=== PATIENT | female | born 1990 | race Caucasian/White ===

== ENCOUNTER 2018-05-05 20:17 | Observation (INO) ==
[2018-05-05] MEDS ORDERED: Aluminum/Magnesium/Simethacone Susp 30 ML UDC PO ONE (20:32)
[2018-05-05] MEDS ORDERED: Famotidine PF Inj 20 MG/2 ML Vial IV.PUSH ONE (20:32)
[2018-05-05] MEDS ORDERED: Sod Chloride 0.9% Inj 1,000 ML IV.SIG ONE (20:32)
--- NOTE | 2018-05-05 20:36 | ED ---
HPI General Chief Complaint: Abdominal Pain Stated Complaint: Vomiting/Diarrhea/Abd Pain x1Day Time Seen by Provider: 05/05/18 20:27 Source: patient Mode of arrival: ambulatory Limitations: no limitations History of Present Illness HPI narrative: Patient is a 28-year-old female who presents the emergency room with complaints of nausea and vomiting and diarrhea. Patient reports that around 2 PM this afternoon, she has had episodes of nausea and vomiting. Patient reports that she has not been able to keep anything her stomach due to this nausea and vomiting. Patient reports that her symptoms have progressed, now she is having diarrhea. Patient does think that her symptoms could be due to food poisoning as she did have [employer] last night. Reports that her as well as her child's ate similar foods and they were okay. Patient reports that she does have history of cholecystectomy in the past -denies any alcohol abuse. Reports that she does have pain in the epigastrium, she was concerned for possible gastric ulcer. Patient with no fever or chills, no other complaints at this time. MD complaint: Reports abdominal pain Onset (ago): hour(s) Pain Consistency: constant Location: Reports epigastric Severity: moderate Severity scale (1-10): 4 Migration to: Reports no migration Relieving factors: nothing Exacerbating factors: nothing Related Data Home Medications Medication Instructions Recorded Confirmed No Known Home Medications 05/05/18 05/05/18 Allergies Allergy/AdvReac Type Severity Reaction Status Date / Time No Known Allergies Allergy Verified 05/05/18 20:19 Review of Systems ROS: all other systems reviewed are negative PMFSH History History Provided By: Patient Medical History Medical History No active medical problems (Acute) Surgical History Surgical History Hx of cholecystectomy (Acute) Social History Social History Substance History: No History of Abuse Second Hand Smoke Exposure: No Smoking Status: Never smoker How Often Do You Have a Drink Containing Alcohol: Monthly or less [facility] within the Last 8 Weeks: No Recent Out of Country Travel within the Last 8 Weeks: No Exam Narrative Exam Narrative: GENERAL: NAD SKIN: Focused skin assessment warm/dry. HEAD: Atraumatic. Normocephalic. EYES: Pupils equal and round. No scleral icterus. No injection or drainage. ENT: No nasal bleeding or discharge. Mucous membranes pink and moist. NECK: Trachea midline. No JVD. CARDIOVASCULAR: Regular rate and rhythm. No murmur appreciated. RESPIRATORY: No accessory muscle use. Clear to auscultation. Breath sounds equal bilaterally. GASTROINTESTINAL: Abdomen soft, tenderness to epigastrium, nondistended. Hepatic and splenic margins not palpable. MUSCULOSKELETAL: No obvious deformities. No clubbing. No cyanosis. No edema. NEUROLOGICAL: Awake and alert. No obvious cranial nerve deficits. Motor grossly within normal limits. Normal speech. PSYCHIATRIC: Appropriate mood and affect; insight and judgment normal. Course Reevaluation(s) Reevaluation #1: Patient was reevaluated, patient reports continued nausea and vomiting with upper abdominal pain. I did order another dose of Zofran for patient, will also add morphine to help with the pain control. Time: 22:01 Initial Documented Vital Signs Temperature 97.5 F L 05/05/18 20:19 Pulse Rate 66 05/05/18 20:19 Respiratory Rate 18 05/05/18 20:19 Blood Pressure 136/70 05/05/18 20:19 Pulse Oximetry 100 05/05/18 20:19 Last Documented Vital Signs Temperature 97.5 F L 05/05/18 20:19 Pulse Rate 62 05/05/18 22:55 Respiratory Rate 18 05/05/18 22:55 Blood Pressure 128/88 05/05/18 22:55 Pulse Oximetry 99 05/05/18 22:55 Medical Decision Making MDM Narrative Medical decision making narrative: During the course of the patients emergency department visit, the patients history, examination, and differential diagnosis were reviewed with the patient. The patient was placed on a traffic monitor specialist with oximetry and frequent blood pressure monitoring. The patient had an IV access obtained and blood work sent for analysis. The patient was initially provided GI cocktail, IV fluids, IV Zofran The patients laboratory studies were reviewed and remarkable for wbc 21, hgb 14.4, hct 44.5, platelet 245 Sodium 137, potassium 3.8, BUN 15, creatinine 0.70, glucose 114 Radiology studies were reviewed and remarkable for CT of the abdomen and pelvis shows a fluid-filled distended appendix with at least one appendicolith. There is some surrounding inflammation suspicious for appendicitis. I did review all labs and all studies with patient in detail. Patient is still not feeling well and still feels sick. Patient with most likely acute appendicitis. Call made to Dr. Ruiz to review case, request transfer to [facility] as he is on-call tomorrow at [facility] for trauma. Plan for OR tomorrow for appendectomy. He accepts patient to his service. Medical Screen Exam Complete: Yes Emergency Medical Condition: Yes Differential Diagnosis Differential Diagnosis: Gastritis, gastroenteritis, pancreatitis, gastric ulcer , duodenal ulcer Lab Data Lab results reviewed: Yes I reviewed the patient's lab results. Result diagrams: 05/05/18 21:30 05/05/18 21:30 POC Results POC Urine Results Negative Lab Results 05/05/18 05/05/18 05/05/18 Range/Units 21:30 21:30 22:55 CBC w Diff Auto diff final WBC 21.0 H (4.0-11.0) th/mm3 RBC 4.97 (4.00-5.30) mil/mm3 Hgb 14.4 (11.6-15.3) gm/dL Hct 44.5 (35.0-46.0) % MCV 89.6 (80.0-100.0) fL MCH 29.1 (27.0-34.0) pg MCHC 32.5 (32.0-36.0) % RDW 12.3 (11.6-17.2) % Plt Count 245 (150-450) th/mm3 MPV 9.4 (7.0-11.0) fL Neut % (Auto) 90.3 H (16.0-70.0) % Lymph % (Auto) 4.0 L (9.0-44.0) % Tompkins % (Auto) 5.2 (0.0-8.0) % Eos % (Auto) 0.1 (0.0-4.0) % Baso % (Auto) 0.4 (0.0-2.0) % Neut # (Auto) 19.0 H (1.8-7.7) th/mm3 Lymph # (Auto) 0.8 L (1.0-4.8) th/mm3 Tompkins # (Auto) 1.1 H (0.0-0.9) th/mm3 Eos # (Auto) 0.0 (0.0-0.4) th/mm3 Baso # (Auto) 0.1 (0.0-0.2) th/mm3 WBC Differential . Differential Comment . Sodium 137 (136-145) meq/L Potassium 3.8 (3.5-5.1) meq/L Chloride 104 (98-107) meq/L Carbon Dioxide 23.6 (21.0-32.0) meq/L Anion Gap 9 (5-15) meq/L BUN 15 (7-18) mg/dL Creatinine 0.70 (0.50-1.00) mg/dL Estimated GFR Greater than 89 (>89) mL/min Random Glucose 114 H (74-106) mg/dL Calcium 8.8 (8.5-10.1) mg/dL Magnesium 2.1 (1.5-2.5) mg/dL Total Bilirubin 0.9 (0.2-1.0) mg/dL AST 26 (15-37) U/L ALT 40 (10-53) U/L Alkaline Phosphatase 60 (45-117) U/L Total Protein 8.0 (6.4-8.2) g/dL Albumin 4.3 (3.4-5.0) g/dL Lipase 105 (73-393) U/L Urine Color Yellow (Yellw/Straw) Urine Clarity Slightly cloudy (Clear) Urine pH 6.0 (5.0-8.5) Ur Specific [place] Greater/equal 1.030 (1.002-1.035) Urine Protein Trace (Neg-Trace) mg/dL Urine Glucose (UA) Negative (Negative) mg/dL Urine Ketones 40 H (Negative) mg/dL Urine Occult Blood Negative (Negative) Urine Nitrate Negative (Negative) Urine Bilirubin Negative (Negative) Urine Urobilinogen 0.2 (Less than 2) mg/dL Ur Leukocyte Esterase Negative (Negative) Urine RBC 0-3 (0-3) /hpf Urine WBC 6-8 H (0-5) /hpf Ur Squamous Epith Cells 6-10 H (0-5) /hpf Urine Mucus Moderate H (Occasional) /lpf Micro UA Comment Culture not ind Ur Microscopic Review Microscopic reviewed Urine Culture Comments Culture not ind Imaging Data Attestation: I personally reviewed and interpreted this imaging study as follows : Radiologist's impression: Abdomen/Pelvis CT 05/05/18 22:00 CONCLUSION: 1. Fluid-filled distended appendix with at least one appendicolith. Some surrounding inflammation suspicious for appendicitis Discharge Plan Discharge Disposition Patient Disposition: ED Admit(ED Internal Use Only) Discharge Condition Condition: Fair Discharge Order Discharge Orders: ED Use Only Admit Order (Routine); Ordered 05/05/18 Ordered By: Raina Cerda Discharge Details Diagnosis: Acute appendicitis Physicians Team ED Provider: Raina Cerda Primary Care Provider: Primary Care Latishai,No Attending Provider: Julieta Wolf Status ED Status: Admitted Observation Patient
[2018-05-05 21:44] LABS: Baso # (Auto) 0.1 th/mm3 (0.0-0.2); Baso % (Auto) 0.4 % (0.0-2.0); Eos % (Auto) 0.1 % (0.0-4.0); Hematocrit 44.5 % (35.0-46.0); Hemoglobin 14.4 gm/dL (11.6-15.3); Lymph # (Auto) 0.8 th/mm3 (1.0-4.8); Mean Corpuscular HGB Conc 32.5 % (32.0-36.0); Mean Corpuscular Hemoglobin 29.1 pg (27.0-34.0); Mean Corpuscular Volume 89.6 fL (80.0-100.0); Mean Platelet Volume 9.4 fL (7.0-11.0); Mono # (Auto) 1.1 th/mm3 (0.0-0.9); Mono % (Auto) 5.2 % (0.0-8.0); Neut % (Auto) 90.3 % (16.0-70.0); Platelet Count 245 th/mm3 (150-450); Red Blood Count 4.97 mil/mm3 (4.00-5.30); Red Cell Distribution Width 12.3 % (11.6-17.2)
[2018-05-05 21:50] LABS: Chloride 104 meq/L (98-107); Potassium 3.8 meq/L (3.5-5.1); Sodium 137 meq/L (136-145)
[2018-05-05 21:54] LABS: Albumin 4.3 g/dL (3.4-5.0); Anion Gap 9 meq/L (5-15); Calcium 8.8 mg/dL (8.5-10.1); Carbon Dioxide 23.6 meq/L (21.0-32.0); Glucose,Random 114 mg/dL (74-106); Lipase 105 U/L (73-393); Magnesium 2.1 mg/dL (1.5-2.5)
[2018-05-05 21:55] LABS: Blood Urea Nitrogen 15 mg/dL (7-18)
[2018-05-05 21:57] LABS: Alanine Aminotransferase 40 U/L (10-53); Aspartate Aminotransferase 26 U/L (15-37); Glomerular Filtration Rate Greater Than 89 mL/min (>89)
[2018-05-05 22:00] LABS: Alkaline Phosphatase 60 U/L (45-117)
[2018-05-05] MEDS ORDERED: Morphine Inj 4 MG/ML Vial IV.PUSH ONE ×2 (22:00→23:38)
[2018-05-05 23:10] LABS: Bilirubin,Urine Negative (Negative); Clarity,Urine Slightly Cloudy (Clear); Color,Urine Yellow (Yellw/Straw); Glucose,Urine (UA) Negative (Negative); Leukocyte Esterase,Urine Negative (Negative); Nitrite,Urine Negative (Negative); Specific Gravity,Urine Greater/Equal 1.030 (1.002-1.035); Urobilinogen,Urine 0.2 mg/dL (Less than 2)
[2018-05-05 23:17] LABS: Mucus,Urine Moderate /lpf (Occasional); RBC,Urine 0-3 /hpf (0-3)
--- NOTE | 2018-05-05 23:28 | CT ---
EXAM DATE: 05/05/2018 11:21 PM EST AGE/SEX: 28 years / Female INDICATIONS: Nausea, vomiting, abdominal pain for last 24 hours. CLINICAL DATA: This is the patient's initial encounter. Patient reports that signs and symptoms have been present for 1 day and indicates a pain score of 7/10. MEDICAL/SURGICAL HISTORY: . Cholecystectomy. RADIATION DOSE: 7.88 CTDI (mGy) COMPARISON: No prior exams available for comparison. TECHNIQUE: Multiple contiguous axial images were obtained through the abdomen. Images were obtained using multiple row detector helical technique. Using automated exposure control and adjustment of the mA and/or kV according to patient size, radiation dose was kept as low as reasonably achievable to o btain optimal diagnostic quality images. DICOM format image data is available electronically for rev iew and comparison. FINDINGS: Lower Lungs: The visualized lower lungs are clear. Liver: The liver has a homogeneous density without space-occupying lesion. There is no dilation of th e biliary tree. Cholecystectomy clips Spleen: Homogeneous density without enlargement. Pancreas: Unremarkable without mass or calcification. Kidneys: Normal in size and shape. No evidence of mass or hydronephrosis. Adrenal Glands: Unremarkable. Aorta: The aorta and proximal iliac vessels are grossly unremarkable without aneurysmal dilation. Bowel/Mesentery: The bowel loops are grossly unremarkable. The cecum and sigmoid colon have a normal configuration. The appendix is identified and is abnormal. It is thickened and fluid-filled with one area of Increased density at its base consistent with an appendicolith. There is some low-grade infl ammation anterior to the appendix confirming appendicitis Abdominal Wall: Intact. Retroperitoneum: No evidence of adenopathy in the retrocrural, para-aortic, or deep pelvic regions. Bladder: Contours are smooth. Reproductive Organs: No abnormal masses or calcifications seen. Multiple cysts bilaterally Inguinal: The inguinal region is unremarkable without evidence of adenopathy. Bony Structures: Unremarkable. CONCLUSION: 1. Fluid-filled distended appendix with at least one appendicolith. Some surrounding inflammation arellano spicious for appendicitis Electronically signed by: Tristen Gabriel MD Board Certified Radiologist 05/05/2018 11:27 PM EST
[2018-05-05] MEDS ORDERED: Piperacil/Tazo 3.375 GM Premix 3.375 GM/50 ML PIGGYBACK IV.SIG ONE (23:34)
[2018-05-06] MEDS: Morphine Inj 4 MG/ML Vial IV.PUSH PRN ×2 (04:05→08:27)
[2018-05-06] MEDS ORDERED: Bupivacaine/Epinephrine Inj 0.25% 50 ML Vial ONE (10:24)
[2018-05-06] MEDS ORDERED: Post-op Orders (for Pharmacy) OTHER ONE (10:41)
[2018-05-06] MEDS ORDERED: Bisacodyl 10 MG Supp RECTAL PRN (10:41)
[2018-05-06] MEDS ORDERED: Morphine Sulfate Inj 8 MG/ML Vial IV.PUSH PRN (10:41)
[2018-05-06] MEDS ORDERED: Promethazine 25 MG Supp RECTAL PRN (10:41)
--- NOTE | 2018-05-06 10:44 | P.OP ---
- Preoperative Diagnosis (1) Acute appendicitis - Postoperative Diagnosis (1) Acute appendicitis Procedure: lap appy Anesthesia: GETA Surgeon: Gilberto Cota MD Pathology: other (appendix) Operation and Findings: inflamed appendix
[2018-05-06] MEDS: Piperacil/Tazo 3.375 GM Premix 3.375 GM/50 ML PIGGYBACK IV.SIG SCH ×2 (11:10→18:05)
[2018-05-06] MEDS ORDERED: Morphine Inj 4 MG/ML Vial IV.PUSH PRN (11:45)
[2018-05-06] MEDS ORDERED: *Meperidine Inj 25 MG/ML Vial PERIprocedural Use ONLY ONE (11:46)
[2018-05-06] MEDS ORDERED: fentaNYL Citrate Inj 100 MCG/2 ML Ampul ONE (11:47)
[2018-05-06] MEDS: Sod Chloride 0.9% Inj 1,000 ML IV.CONT SCH ×2 (12:00→23:20)
[2018-05-06] MEDS: Ketorolac Inj 30 MG/ML (IVP) Vial IV.PUSH PRN (13:06)
--- NOTE | 2018-05-06 13:59 | MH ---
cc: Gilberto Cota MD DATE OF ADMISSION: 05/05/2018 CHIEF COMPLAINT: Acute appendicitis, right lower quadrant abdominal pain. HISTORY OF PRESENT ILLNESS: The patient is a 28-year-old female who presents to the emergency department with acute onset of generalized abdominal pain. It started at around 2 p.m. The pain continued to get worse and was pretty severe. She states the pain was mid abdomen and slowly localized to the right lower quadrant. She has never had pain quite severe like this before. She denies any NSAID use. She states the pain was a 9/10, currently it is a 6/10, better with some pain medication; however, still significant. She had associated nausea, vomiting and some diarrhea as well. She came to the emergency department for further evaluation including CT scan showing acute appendicitis and WBC of 21,000. PAST MEDICAL HISTORY: The patient has no past medical history. PAST SURGICAL HISTORY: Laparoscopic cholecystectomy. SOCIAL HISTORY: Denies smoking, ETOH. Occasional ETOH. Denies IVDA. MEDICATIONS: See electronic medical record. FAMILY HISTORY: Diabetes and hypertension. REVIEW OF SYSTEMS: GENERAL: Denies eye pain, ear pain. NECK: Denies swelling or pain. LUNGS: Denies cough, wheeze, palpitations or chest pain. ABDOMEN: Complains of nausea, vomiting, diarrhea, abdominal pain. GENITOURINARY: Denies dysuria or hematuria. Denies polyuria, polydipsia. INTEGUMENT: Denies any masses or lesions. NEUROLOGIC: Denied any numbness or tingling. PSYCHIATRIC: Denies any change in mood or sensorium. PHYSICAL EXAMINATION: GENERAL: The patient in no acute distress. VITAL SIGNS: Temperature 97.5, pulse 66, respirations 18, blood pressure 136/70, saturation 100%. HEENT: Pupils equal, round, reactive. NECK: Supple. Trachea midline. LUNGS: Clear to auscultation, bilateral expansion. HEART: S2, S1, regular. ABDOMEN: Soft. Positive tenderness to palpation in right lower quadrant. Minimal rebound. EXTREMITIES: Warm and well perfused. NEUROLOGIC: GCS of 15. Motor 5/5 in all extremities. INTEGUMENT: No obvious masses or lesions. LABORATORY AND DIAGNOSTIC DATA: WBC 21, hemoglobin 14.4, hematocrit 44.5, platelets 245. Sodium 137, potassium 3.8, chloride 104, BUN 15, creatinine 0.7, glucose 114, AST 26, ALT 40, lipase 105. CT reviewed by myself showing an enlarged thickened appendix, appendicolith, acute appendicitis. ASSESSMENT: The patient is a 28-year-old female who presents with acute onset abdominal pain consistent with appendicitis. PLAN: After a full workup, patient was found to have the above-named issues. At this point, the patient has acute appendicitis. We will take the patient emergently to operating room for laparoscopic appendectomy. Discussed with the patient in detail possible drain and possible open. We will continue n.p.o., IV fluids, IV antibiotics, pain control. MD TRAVIS Cedeno/hamzah , 12:54 PM , 01:01 PM
--- NOTE | 2018-05-06 14:53 | MP ---
cc: Gilberto Cota MD DATE OF OPERATION: 05/06/2018 PREOPERATIVE DIAGNOSIS: Acute appendicitis. POSTOPERATIVE DIAGNOSIS: Acute appendicitis. PROCEDURE PERFORMED: Laparoscopic appendectomy. SURGEON: Gilberto Cota MD VACUUM DRIER TENDER: Sada ANESTHESIA: GETA. ESTIMATED BLOOD LOSS: 5 mL. DRAINS: None. COMPLICATIONS: None. WOUND CLASSIFICATION: Contaminated. SPECIMENS: Appendix. FINDINGS: Acute inflamed, indurated appendix with fibrinopurulent drainage. No evidence of perforation. INDICATIONS FOR PROCEDURE: This is a 28-year-old female who presents with acute onset of abdominal pain. CT findings with acute appendicitis. Therefore, decision for laparoscopic appendectomy. DETAILS OF PROCEDURE: A brief timeout was done, stating correct patient, procedure, and surgical site. We were all in agreement with this. Attention first directed to the umbilicus where a previous umbilical incision was noted. Incision made with 11 blade after injection of local anesthetic. The Optiview 5 mm Visiport was done to enter the abdomen safely. Abdomen insufflated to 15 mm pneumoperitoneum. On cursory inspection, no evidence of injury. Two other ports were placed, including a 12 mm left lower quadrant and a 5 mm suprapubic port. The patient was placed in Trendelenburg and airplaned to the left. The right lower quadrant was examined and identified. The appendix was noted to be somewhat significant in size with induration and infection. Fibropurulent material noted on the surface of the appendix. No evidence of gross perforation. Electrocautery was used with narrowing at the mesoappendix. A 35 RUBEN stapler was used to transect the base of the appendix. The mesoappendix was transected with a RUBEN 35 stapler as well. Hemostasis was obtained with electric Bovie cautery. The appendix was placed in appendiceal laparoscopic bag and removed from the abdomen. Pneumoperitoneum was removed. The ports were removed. The left lower quadrant 12 mm port was closed with 0 Vicryl to the fascia and 4-0 Monocryl used at all port sites. Local anesthetic was injected and Steri-Strips placed and sterile dressings. The patient tolerated the procedure. There were intraoperative complications. All lap and instrument counts were correct at the end of the procedure. The patient was extubated and taken stable to the PACU. MD Shiv Cedeno , 11:44 AM , 11:51 AM
[2018-05-06] MEDS: Senna/Docusate Sodium 8.6/50 MG Tablet PO SCH ×2 (19:44→23:20)
[2018-05-07] MEDS: Sod Chloride 0.9% Inj 1,000 ML IV.CONT SCH ×2 (00:12→11:21)
[2018-05-07] MEDS: Piperacil/Tazo 3.375 GM Premix 3.375 GM/50 ML PIGGYBACK IV.SIG SCH ×2 (04:34→11:22)
--- NOTE | 2018-05-07 06:03 | P.PNGS ---
Subjective Patient reports: no new complaints, feels better Physical Exam Vital signs: Vital Signs 05/06/18 07:12 05/06/18 08:00 05/06/18 08:40 Temperature 98.6 F 97.8 F Pulse Rate 96 H 65 90 Respiratory Rate 30 H 16 22 Blood Pressure 115/82 131/62 116/75 Pulse Oximetry 100 99 100 05/06/18 11:42 05/06/18 11:45 05/06/18 12:00 Temperature 99 F Pulse Rate 113 H 110 H 97 H Respiratory Rate 15 15 13 Blood Pressure 109/59 L 110/64 102/54 L Pulse Oximetry 100 100 100 05/06/18 12:15 05/06/18 13:45 05/06/18 14:39 Temperature 98.6 F 98.0 F 98.0 F Pulse Rate 98 H 103 H 86 Respiratory Rate 13 18 17 Blood Pressure 98/54 L 96/55 L 101/55 L Pulse Oximetry 100 97 99 05/06/18 20:00 05/06/18 22:00 05/06/18 23:19 Temperature 98.5 F Pulse Rate 68 Respiratory Rate 16 20 Blood Pressure 95/60 L 98/62 L Pulse Oximetry 96 05/06/18 23:33 05/07/18 04:08 Temperature 98.5 F 97.5 F L Pulse Rate 62 70 Respiratory Rate 16 16 Blood Pressure 94/54 L 96/57 L Pulse Oximetry 100 99 Intake & Output 05/06/18 05/06/18 05/07/18 06:59 18:59 06:59 Intake Total 1050 / 1050 1100 / 1100 50 / 50 Output Total 205 / 205 Balance 1050 / 1050 895 / 895 50 / 50 Weight 58.8 kg Intake: IV 1050 / 1050 100 / 100 50 / 50 Zosyn 3.375 GM Premix 3.375 gm 50 / 50 100 / 100 50 / 50 In 50 ml @ 100 mls/hr IV.SIG Q8H RHODA Rx#:[id number] NS Inj 1,000 ML @ Wide Open IV. 1000 / 1000 SIG BOLUS ONE Rx#:[id number] Oral 0 / 0 Anesthesia Amount 1000 / 1000 Output: Urine 200 / 200 Estimated Blood Loss 5 / 5 Other: # Voids 1 Date of Last Bowel Movement 05/05/18 # Bowel Movements 0 Weight On Admission 59.5 kg - Routine Abdominal Exam Present: soft (incisional tenderness) Results - Labs 05/05/18 21:30 05/05/18 21:30 - Imaging Imaging: ITS Impressions Abdomen/Pelvis CT 05/05/18 22:00 CONCLUSION: 1. Fluid-filled distended appendix with at least one appendicolith. Some surrounding inflammation suspicious for appendicitis Assessment and Plan - Plan POD 1 Lap appy abx pain control d/c home today if tolerating diet scrips on chart
[2018-05-07 07:09] LABS: Baso % (Auto) 0.4 % (0.0-2.0); Eos # (Auto) 0.1 th/mm3 (0.0-0.4); Eos % (Auto) 1.2 % (0.0-4.0); Hematocrit 32.4 % (35.0-46.0); Hemoglobin 11.2 gm/dL (11.6-15.3); Lymph # (Auto) 1.9 th/mm3 (1.0-4.8); Lymph % (Auto) 16.3 % (9.0-44.0); Mean Corpuscular HGB Conc 34.4 % (32.0-36.0); Mean Corpuscular Hemoglobin 31.2 pg (27.0-34.0); Mean Corpuscular Volume 90.6 fL (80.0-100.0); Mean Platelet Volume 8.8 fL (7.0-11.0); Mono # (Auto) 0.8 th/mm3 (0.0-0.9); Mono % (Auto) 7.3 % (0.0-8.0); Neut # (Auto) 8.6 th/mm3 (1.8-7.7); Neut % (Auto) 74.8 % (16.0-70.0); Platelet Count 136 th/mm3 (150-450); Red Blood Count 3.58 mil/mm3 (4.00-5.30); Red Cell Distribution Width 12.5 % (11.6-17.2); White Blood Count 11.5 th/mm3 (4.0-11.0)
[2018-05-07] MEDS: Senna/Docusate Sodium 8.6/50 MG Tablet PO SCH (08:18)
[2018-05-07] MEDS: Ketorolac Inj 30 MG/ML (IVP) Vial IV.PUSH PRN (09:51)
[2018-05-07] MEDS: Morphine Inj 4 MG/ML Vial IV.PUSH PRN (11:28)
[2018-05-07 12:21] VITALS: BP 109/65; PULSE 66; RESP 16; TEMP 97.8; O2SAT 98
== END 2018-05-07 13:53 | disposition home or self-care (01) ==
LOC: PHEDA 20:17 → PHED 20:17 → PHEDA 05-06 01:50 → NEPFCDU 05-06 02:17 → N06 05-06 09:21 → N07 05-06 12:38
PROVIDERS: ADMIT Surgery; ATTEND Surgery
PROC: LAPAPPY (ICD-10-PCS; 2018-05-06 10:35)
CPT/HCPCS: 74176; 80053; 81001; 83690; 83735; 84703; 85025; 88304; 90761; 90774; 90775; 90776; 96361; 96365; 96366; 96374; 96375; 96376; 99285; C8952; G0378; J0131; J1885; J2175; J2250; J2270; J2405; J2543; J3010; J7030